=== PATIENT | female | born 1970 | race Caucasian/White ===

== ENCOUNTER 2017-10-30 11:55 | Observation (INO) | payer OTHER ==
[2017-10-30 12:50] VITALS: BMI 30.4
[2017-10-30 13:13] LABS: Absolute Lymphocytes (CBC) 1.3 K/uL (0.7-4.9); Absolute Monocytes 0.6 K/uL (0.1-1.3); Absolute Neutrophil 7.4 K/uL (1.8-8.0); Basophils % 0.7 % (0-1.3); Eosinophils % 0.3 % (0-4.4); Hematocrit 40.6 % (36.0-45.0); Lymphocytes % 13.7 % (15.3-44.8); MCH 28.7 pg (27.0-35.0); MCV 88.5 fL (80-100); Monocytes % 6.1 % (3.3-12.3); RBC Red Blood Cell Count 4.59 M/uL (3.86-4.86)
[2017-10-30 13:29] LABS: Potassium 4.4 mEq/L (3.6-5.0); Protime INR 1.06
[2017-10-30] MEDS: Ringers Lactate 1,000 ML IV SCH ×2 (13:36→22:54)
[2017-10-30] MEDS: Morphine 2 MG/2 ML SYR IV PRN ×2 (13:44→20:40)
[2017-10-30] MEDS ORDERED: ONDANSETRON 4 MG/2 ML VIAL IV ONE (13:49)
[2017-10-30 18:40] LABS: Hematocrit 37.9 % (36.0-45.0)
[2017-10-30] MEDS: ACETAMINOPHEN 500 MG TAB PO PRN (20:40)
[2017-10-30] MEDS: ONDANSETRON 4 MG/2 ML VIAL IV PRN (20:40)
--- NOTE | 2017-10-31 02:47 | HP ---
Date of Admission: 10/30/2017 Chief Complaint: Nose bleed. History Of Present Illness: Ms. Padmini Rockwell presented to the emergency room at [facility] this morning w ith severe nosebleed. She reports that she began bleeding profusely from the right side of the nose at approximately 7 a.m. and around 7:45 when the bleeding had not stopped, she was brought by her son to the [facility]. She underwent placement of a right rhino rocket and was referred to my clinic for further evaluation. The patient was evaluated in the clinic at approximately 10:30 in morning. She reports that she has a history of nosebleeds during childhood and underwent previous cauterization but had not had any significant nosebleeds for a significant period of time. She does have a history of high blood pressure and is on lisinopril 20 mg. Her primary care doctor, Dr. Denise sharpe, has been managing her blood pressure, but the patient feels that her blood pressure fluctuate s significantly and that it overall is not well controlled. She does have a history of ovarian cance r and was previously on chemotherapy but is not recently receiving any therapy. She denies any known history of bleeding disorder. There is no family history of HHT. She is not currently on any blood thinners or aspirin. She denies any facial trauma or other inciting event that she can recall with regard to the onset of the bleeding. Past Medical History: Ovarian cancer, nosebleeds in childhood. Previous Surgical History: Hysterectomy and lymphadenectomy. Current Medications: Lisinopril and medication for depression which she cannot recall. Allergies: SULFA. Social History: The patient lives with her and adolescent son. She denies any tobacco use o r alcohol use. Family Medical History: Hypertension in her father, kidney problems in her father, cancer in both pa rents. Review of Systems: Positive for dry eyes, ringing in the ears, snoring, diarrhea, constipation, possible swollen lymph n odes, history of cancer treatments and depression. All other review of systems is negative. Physical Examination: The patient appears acutely ill. She is very pale. She appears in distress and complains of severe pain in the right face and nose. She has a right-sided rhino rocket in place with no active bleeding anteriorly. The left nostril is clear. There is a prominent superficial blood vessel on the left n benja septum, but there is no sign of blood, bloody secretions, or crusting in this area. The orophar ynx is clear. The lips, teeth, gingiva, tongue, palate are all normal. The tonsils are not enlarged . The posterior pharyngeal wall is free from blood and clot. The external ears are unremarkable. T he ear canals and tympanic membranes are not examined. After discussing the options and preparing ap propriate equipment, the rhino rocket was carefully deflated. After a few moments, there is no signi ficant bleeding noted from the nose and the rhino rocket is gently removed from the nose. On examina tion of the right nasal cavity after a rhino rocket removal, the anterior septum appears smooth with no evidence of excoriations, crusting, or bleeding. There is clot within the middle meatus and on an terior rhinoscopy. I suspect a right-sided posterior epistaxis from the sphenopalatine region or pos sible anterior ethmoid. The patient after removal of the pack, feels some relief from pain, but also notes a sensation of bleeding or drainage in the back of the nose due to concern for recurrence of b leeding. A 4 cm Merocel tampon type pack is placed within the middle meatus. The pack is soaked wit h Afrin lidocaine solution. During placement of the pack, the patient reports feeling faint and redd me somewhat diaphoretic. She is reclined into a semisupine position and allowed to rest for several minutes. There was no apparent bleeding anteriorly or posteriorly from the nose after placement of t he Merocel pack. The patient is observed in the clinic for packs approximately 30 minutes and no add itional bleeding is noted. The patient remains quite pale and mildly tachycardic. Assessment: Right posterior epistaxis, tachycardia, concern for anemia of acute blood loss. Plan: After discussing options with the patient and her spouse, I feel the best plan of action is to place her under observation at [facility]. We will plan to keep the patient n.p.o. for the aftern oon in case additional bleeding results and need for operative intervention. We will start periphera l IV, IV fluids. We will plan for stat CBC, chemistry, and coag studies with hemoglobin and hematocr it measurements every 6 hours. I would expect some drop in her hemoglobin with hydration given recen t blood loss over the last few hours, but if her hemoglobin and hematocrit stabilize over night and t here is no active bleeding, we will assess for discharge to home. I reassessed the patient on the hospital floor at approximately 5:30 p.m. At that time, there was no active bleeding from the nose and her oropharynx was clear. She complained of pressure in the right cheek and in the right ear with some muffled hearing and I suspect she likely has a hemotympanum in conjunction with the nosebleed. We will assess further physical findings in the morning. I discusse d with the patient my impending departure from [facility] and the desire typically to leave pack in place f or 48 hours prior to removal. In the morning, we will discuss the option including removal on or removal with Dr. Rincon on Saturday. I advised the patient that due to my departure for out of town conference that if she had recurrence of bleeding over the weekend, she would require transfer to [place] or [place] since there will not be any ENT on-call who has operative privileges in this area. She and her expressed understanding. In addition, the patient expresses desire to [facility] primary care physician to Dr. Ashley. I do not see any acute need for inpatient evaluation with h im at the time, but would be happy to provide referral information and records as needed following he r discharge. RIGO Voice ID: [id number]
[2017-10-31] MEDS: ACETAMINOPHEN 500 MG TAB PO PRN (04:18)
[2017-10-31] MEDS: ONDANSETRON 4 MG/2 ML VIAL IV PRN (04:19)
[2017-10-31] MEDS: Morphine 2 MG/2 ML SYR IV PRN (04:20)
[2017-10-31 06:57] LABS: Hematocrit 36.2 % (36.0-45.0)
[2017-10-31 08:13] VITALS: BP 144/86
[2017-10-31] MEDS: Ringers Lactate 1,000 ML IV SCH (08:13)
[2017-10-31 08:17] VITALS: TEMP 97.6
[2017-10-31] MEDS ORDERED: LISINOPRIL 20 MG TAB PO SCH (09:00)
[2017-10-31 09:32] VITALS: O2SAT 96
== END 2017-10-31 09:00 | disposition home or self-care (01) ==
LOC: 4TH 12:12
PROVIDERS: ADMIT Otolaryngology; ATTEND Otolaryngology
DX: R04.0 Epistaxis (principal); R00.0 Tachycardia, unspecified; Z88.2 Allergy status to sulfonamides
CPT/HCPCS: 36415; 80048; 85014; 85018; 85025; 85610; 85730; G0378; J2270; J2405

== ENCOUNTER 2018-11-13 16:06 | Observation (INO) | payer OTHER ==
[2018-11-13 17:07] VITALS: BMI 30.7
[2018-11-13 18:23] LABS: Absolute Lymphocytes (CBC) 2.7 K/uL (0.7-4.9); Absolute Monocytes 0.6 K/uL (0.1-1.3); Absolute Neutrophil 2.6 K/uL (1.8-8.0); Basophils % 0.7 % (0-1.3); Eosinophils % 2.1 % (0-4.4); Hematocrit 39.3 % (36.0-45.0); MPV 9.3 fL (7.6-11.3); Monocytes % 9.4 % (3.3-12.3); RBC Red Blood Cell Count 4.47 M/uL (3.86-4.86)
[2018-11-13 18:29] LABS: Protime INR 0.97
[2018-11-13 18:57] LABS: Urine Appearance CLEAR; Urine Bilirubin NEGATIVE (NEG); Urine Blood NEGATIVE (NEG); Urine Color YELLOW; Urine Glucose NEGATIVE (NEG); Urine Microscopic Reflex NO UMIC; Urine Protein NEGATIVE (NEG); Urine Urobilinogen 0.2 mg/dL (0.2-1.0)
[2018-11-13 19:03] LABS: ALT/SGPT 45 U/L (12-78); AST/SGOT 30 U/L (15-37); Albumin 4.1 g/dL (3.4-5.0); Alkaline Phosphatase 90 U/L (45-117); BUN Blood Urea Nitrogen 15 mg/dL (7-18); Bicarbonate 29 mmol/L (21-32); Bilirubin Direct < 0.1 mg/dL (0-0.2); Bilirubin Total 0.3 mg/dL (0.2-1.0); Glucose Level 96 mg/dL (74-106); Magnesium 2.5 mg/dL (1.8-2.4); Phosphorus 4.6 mg/dL (2.5-4.9); Potassium 3.5 mmol/L (3.5-5.1); Protein, Total 7.8 g/dL (6.4-8.2); Sodium Level 142 mmol/L (136-145)
--- NOTE | 2018-11-13 19:43 | RAD REPORT ---
EXAM DESCRIPTION: RAD - Chest Pa And Lat (2 Views) - 11/13/2018 7:31 pm CLINICAL HISTORY: diffuse pain in abdomen and back Chest pain. COMPARISON: No comparisons FINDINGS: The lungs are clear. The heart is mildly prominent size. No displaced fractures. IMPRESSION: Mild cardiomegaly.
--- NOTE | 2018-11-13 19:49 | RAD REPORT ---
EXAM DESCRIPTION: MRI - Lumbar Spine Wo Con- 11/13/2018 7:20 pm CLINICAL HISTORY: pain Back pain, radiculopathy. COMPARISON: <Comparisons> FINDINGS: Vertebral body heights are within normal limits. No aggressive marrow pattern is observed. No fracture is suspected. The conus medullaris terminates at a normal level. No thickening of the cauda equina or clumping of n erve roots seen. L1-2 level: No significant findings. L2-3 level: Minimal posterior disc bulge and facet hypertrophy. L3-4 level: Mild posterior disc bulge and moderate facet and ligamentum flavum hypertrophy. L4-5 level: 5 mm central disc protrusion with moderate facet and ligamentum flavum hypertrophy. No si gnificant canal or foraminal stenosis. L5-S1 level: 4 mm central disc protrusion is present with [id number] facet and ligamentum flavu m hypertrophy. No significant central canal or foraminal stenosis. IMPRESSION: Mild lower lumbar spondylosis is seen. No high-grade canal stenosis or foraminal stenosi s is identified at any level.
--- NOTE | 2018-11-13 20:10 | RAD REPORT ---
EXAM DESCRIPTION: CT - Abdomen Pelvis W/Wo Contrast - 11/13/2018 7:50 pm CLINICAL HISTORY: pain Abdominal pain. COMPARISON: Abdomen Pelvis W Contrast dated 06/17/2017 TECHNIQUE: Axial non-contrast CT imaging was performed. Following this, biphasic contrast enhanced i maging through the abdomen and pelvis was performed with coronal and sagittal reformatted images. All CT scans are performed using dose optimization technique as appropriate and may include automated exposure control or mA/KV adjustment according to patient size. FINDINGS: The lower lung gleason are clear. The liver, spleen, pancreas and adrenal glands are normal. The non-contrast portion of the study does not demonstrate any urinary tract stones. No hydronephrosi s is seen in either kidney. The post-contrast portion of the examination fails to show a concerning renal mass or perinephric abn ormality. Postsurgical changes of lymph node dissection noted along the iliac vessels. No bowel obstruction, free fluid or abscess. Postsurgical findings are present in the sigmoid colon. The appendix is not identified as a discrete structure, however, no secondary findings of appendiciti s are identified. No fracture or aggressive marrow process is seen. IMPRESSION: No acute or pathologic finding demonstrated.
[2018-11-13] MEDS ORDERED: POLYETHYL GLY 3350 17 GM/DOSE PO PRN (20:44)
[2018-11-13] MEDS: CEFOXITIN SODIUM 1 GM/VIAL IVPB SCH (21:00)
[2018-11-13] MEDS ORDERED: NACHLORIDE 0.45% 1,000 ML IV SCH (21:00)
[2018-11-13] MEDS: HYDROMORPHONE HCL 2 MG/ML inj IV PRN (21:51)
[2018-11-13] MEDS: ONDANSETRON 4 MG/2 ML VIAL IV PRN (21:51)
[2018-11-13] MEDS ORDERED: CEFOXITIN SODIUM 1 GM/VIAL ONE (23:33)
[2018-11-13] MEDS: DIPHENHYDRAMINE 25 MG TAB/CAP PO PRN (23:42)
[2018-11-14] MEDS ORDERED: LOPERAMIDE HCL 2 MG CAPSULE PO PRN (00:01)
[2018-11-14] MEDS: CEFOXITIN SODIUM 1 GM/VIAL IVPB SCH (05:21)
[2018-11-14 06:21] LABS: Absolute Lymphocytes (CBC) 1.5 K/uL (0.7-4.9); Absolute Monocytes 0.4 K/uL (0.1-1.3); Absolute Neutrophil 5.9 K/uL (1.8-8.0); Basophils % 0.4 % (0-1.3); Eosinophils % 0.5 % (0-4.4); Hematocrit 38.7 % (36.0-45.0); Lymphocytes % 19.4 % (15.3-44.8); MPV 9.1 fL (7.6-11.3); Monocytes % 4.8 % (3.3-12.3); RBC Red Blood Cell Count 4.39 M/uL (3.86-4.86)
[2018-11-14 06:25] LABS: Magnesium 2.5 mg/dL (1.8-2.4)
[2018-11-14] MEDS: ACETAMINOPHEN 325 MG TABLET PO PRN ×2 (06:47→10:59)
[2018-11-14] MEDS ORDERED: ONDANSETRON 4 MG (ODT) TAB PO PRN (08:00)
--- NOTE | 2018-11-14 08:40 | EKG ---
Test Date: 2018-11-13 Test Time: 17:43:30 Cell Tender Helper: CARL MEASUREMENT RESULTS: Intervals: Rate: 51 LA: 176 QRSD: 98 QT: 464 QTc: 427 [place]: P: 53 LA: 176 QRS: 13 T: -9 INTERPRETIVE STATEMENTS: Sinus bradycardia Low voltage QRS Cannot rule out Anterior infarct, age undetermined T wave abnormality, consider lateral ischemia Abnormal ECG No previous ECG available for comparison Electronically Signed On 11-14-18 08:39:42 CDT by Daniel Macdonald
[2018-11-14] MEDS ORDERED: CANDESARTAN PO SCH (09:00)
[2018-11-14] MEDS: NACHLORIDE 0.45% 1,000 ML IV SCH ×3 (09:00→19:50)
[2018-11-14] MEDS: ENOXAPARIN 40 MG/0.4 ML SQ SCH ×2 (09:00→09:40)
[2018-11-14] MEDS ORDERED: HYDROCHLOROTHIAZIDE PO SCH (09:00)
[2018-11-14] MEDS ORDERED: [UNRECOGNIZED DRUG - OTHER] PO SCH (09:00)
[2018-11-14] MEDS ORDERED: CEFOXITIN/SWI 1gm 1 GM/10 ML SYR IV SCH (09:00)
[2018-11-14] MEDS: SERTRALINE HCL 50 MG TAB PO SCH (09:40)
[2018-11-14] MEDS: CARVEDILOL 12.5 MG TAB PO SCH (09:41)
[2018-11-14] MEDS ORDERED: VALSARTAN 80 MG TAB PO SCH (10:30)
[2018-11-14] MEDS ORDERED: hydroCHLOROthiazide 12.5 MG CAP PO SCH (10:30)
--- NOTE | 2018-11-14 15:47 | P.CNS ---
Date of Consult: 11/14/18 Reason for Consult: ROBIN Chief Complaint: back pain History of Present Illness: A 47 Y/o woman with PMhx of HTN on HCTZ and valsartan, Hx of ovarian cancer in 2005 S/P oopherectomy and hysterectomy and chemotherapy and Hx of recurrent UTI pt had urinary urgency and frequency last week , took OTC AZO Saturday pt was complaining of flank and back pain aggrivated by sitting in ER Cr 0.7 , recived IV ontrast , no NSAID Cr up to 1.3 today no chest pain fever or chills Allergies Sulfa (Sulfonamide Antibiotics) Allergy (Intermediate, Verified 11/13/18 18:08) Unknown codeine Adverse Reaction (Mild, Verified 11/13/18 18:08) Unknown Home Medications: Candesartan/Hydrochlorothiazid [Candesartan-Hctz 32-12.5 mg Tb] 32 mg PO DAILY 11/13/18 Carvedilol [Coreg*] 12.5 mg PO DAILY 11/13/18 Sertraline [Zoloft*] 25 mg PO DAILY 11/13/18 - Past Medical/Surgical History Diabetic: No -: HTN -: hypothyroid -: depression -: ovarian cancer -: 2005 hysterectomy -: lymphectomy -: colon resection, tumor removal -: appendectomy - Family History Mother Medical History: Cancer Father Medical History: Hypertension, Cancer - Social History Alcohol use: No CD- Drugs: No Caffeine use: Yes Place of Residence: Home Physical Examination Temp Pulse Resp BP Pulse Ox 97.2 F 53 18 123/72 94 11/14/18 12:00 11/14/18 12:00 11/14/18 12:00 11/14/18 12:00 11/14/18 12:00 General: In no apparent distress, Oriented x3 HEENT: Atraumatic Neck: Supple, Without JVD or thyroid abnormality Respiratory: Clear to auscultation bilaterally Cardiovascular: No edema, Regular rate/rhythm, Normal S1 S2, No gallops, No rubs , No murmurs Gastrointestinal: Normal bowel sounds, Soft and benign Laboratory Data (last 24 hrs) 11/14/18 05:30: Sodium 143, Potassium 4.0, BUN 15, Creatinine 1.38 H, Glucose 110 H, Magnesium 2.5 H 11/14/18 05:30: WBC 7.8 D, Hgb 13.0, Hct 38.7, Plt Count 262 11/13/18 17:45: Sodium 142, Potassium 3.5, BUN 15, Creatinine 0.72, Glucose 96, Phosphorus 4.6, Magnesium 2.5 H, Total Bilirubin 0.3, AST 30, ALT 45, Alkaline Phosphatase 90 11/13/18 17:45: PT 11.5, INR 0.97, APTT 30.1 11/13/18 17:45: WBC 6.0, Hgb 13.2, Hct 39.3, Plt Count 286 - Problems (1) ROBIN (acute kidney injury) Current Visit: Yes Status: Acute Conclusions/Impression: ROBIN reason is unclear , pt with contrast exposure but she is at a low risk for contrast induced nephropathy Abd Ct; no hydro, renal mass? Agree with IVF urine no active sidemnt will dc HCTZ and valsartan HTN controlled will dc HCTZ and valsartan Abd and back pain Abd Ct and Spine MRI , with no significant finding avoid NSAID
--- NOTE | 2018-11-14 18:21 | RAD REPORT ---
EXAM DESCRIPTION: US - Renal Ultrasound-Complete - 11/14/2018 5:19 pm CLINICAL HISTORY: . Acute renal insufficiency COMPARISON: None. FINDINGS: The right kidney measures 10 cm with a normal echotexture. The left kidney measures 10 cm with a normal echotexture. Hydronephrosis is not seen. No gross abnormality of the bladder IMPRESSION: Unremarkable renal ultrasound.
[2018-11-14] MEDS: HYDROMORPHONE HCL 2 MG/ML inj IV PRN (19:50)
[2018-11-14] MEDS: ONDANSETRON 4 MG/2 ML VIAL IV PRN (19:51)
[2018-11-14] MEDS: DIPHENHYDRAMINE 25 MG TAB/CAP PO PRN (20:05)
[2018-11-14 23:28] VITALS: O2SAT 94
--- NOTE | 2018-11-14 23:39 | CON ---
Date of Consultation: 11/14/2018 History Of Present Illness: Ms. Rockwell is a 47-year-old patient, comes to the hospital with back jovi n. She stated the pain also goes in the left lower quadrant. She has history of recurrent UTIs, but she does not remember at this moment any dysuria or hematuria. She has history of an oophorectomy a nd hysterectomy for ovarian cancer with also a history of chemotherapy. She states she is even havin g problem with bowel issues and in this case, she mentioned about a torsion that required laparotomy and bowel resection. There is pain right now she states in the lower abdomen right in the area above the sacrum. She denies any trauma, any falls. She denies any melena. Allergies: INCLUDE SULFA AND CODEINE. Medications: Include Coreg, Zoloft, and hydrochlorothiazide. Medical Problems: Ovarian cancer, history of chemotherapy, depression, hypothyroidism, hypertension. Past Surgical History: Includes ovarian cancer surgery; hysterectomy; lymphadenectomy, she states tw ice; appendectomy; and she mentioned also some intestinal resection, but no details on the extent of that. Review of Systems: Ten points, otherwise unremarkable. Physical Examination: General: The patient is awake and alert. HEENT: Pupils are equal and reactive, anicteric. Neck: Supple. Chest: Clear. Abdomen: Soft and depressible. No guarding or rebound. She has some kind of left flank tenderness with tenderness over the area of the sacrum region. We did not see any infection or any abscess in t hat region. No step-off tenderness. No pinpoint tenderness. Rectal and Pelvic: Deferred. Extremities: Good capillary refill. Inguinal region with no major lymphadenopathy palpated. Laboratory Data: Blood work shows WBC count of 6.0, hemoglobin of 13.2, INR was 0.97, creatinine is 0.72. Total bilirubin of 0.3. UA: Nitrite negative, blood negative. CAT scan of abdomen and pelvi s interpreted by Dr. Calabrese as liver, spleen, pancreas, and adrenal glands normal. No urinary tract stone seen, no hydronephrosis seen. No masses in the kidney seen. On iliac vessels, some changes to lymph node from previous dissection. No bowel obstruction, free fluid, or abscess. Postsurgical ch anges in the sigmoid colon. Negative study. The patient also had a renal ultrasound showed unremark able ultrasound. Assessment: A 47-year-old patient with lower back pain, but etiology of that is unknown. With exten sive history of abdominal surgery, ovarian cancer with lymph node involvement, it is hard to pinpoint etiology of this pain. We did not see anything at this moment that is acute, although we really enc ouraged her to follow with her oncologist to continue the workup for ovarian cancer. We cannot rule out any metastasis at this moment. I do not see it at this moment right now. I do not see any surgi naveed intervention. Plan: Fluoroscopy in the next 24 hours, although once again we encouraged her to follow with her onc ologist for proper workup for any metastatic disease. We will follow up in your office when she gets discharged. LUCRECIA/LOC Voice ID: [id number] Report ID: [id number]
[2018-11-15] MEDS: ONDANSETRON 4 MG/2 ML VIAL IV PRN (01:43)
[2018-11-15] MEDS: HYDROMORPHONE HCL 2 MG/ML inj IV PRN (01:43)
[2018-11-15] MEDS: NACHLORIDE 0.45% 1,000 ML IV SCH (03:36)
[2018-11-15] MEDS: ACETAMINOPHEN 325 MG TABLET PO PRN (06:04)
[2018-11-15 06:23] LABS: Absolute Lymphocytes (CBC) 2.1 K/uL (0.7-4.9); Absolute Monocytes 0.5 K/uL (0.1-1.3); Absolute Neutrophil 4.2 K/uL (1.8-8.0); Basophils % 0.6 % (0-1.3); Eosinophils % 1.2 % (0-4.4); Hematocrit 36.6 % (36.0-45.0); Lymphocytes % 30.3 % (15.3-44.8); MPV 8.9 fL (7.6-11.3); Monocytes % 6.8 % (3.3-12.3); RBC Red Blood Cell Count 4.13 M/uL (3.86-4.86)
[2018-11-15 06:45] LABS: Magnesium 2.3 mg/dL (1.8-2.4); Potassium 3.7 mmol/L (3.5-5.1)
[2018-11-15 08:16] VITALS: BP 126/80; TEMP 96.6
[2018-11-15] MEDS ORDERED: POTASSIUM CL SA 10 MEQ TAB PO ONE (09:00)
[2018-11-15] MEDS: ENOXAPARIN 40 MG/0.4 ML SQ SCH (09:00)
[2018-11-15] MEDS: SERTRALINE HCL 50 MG TAB PO SCH (09:04)
[2018-11-15] MEDS: CARVEDILOL 12.5 MG TAB PO SCH (09:04)
--- NOTE | 2018-11-15 21:56 | P.DS ---
Admission Date: 11/13/18 Discharge Date: 11/15/18 Disposition: ROUTINE DISCHARGE Reason for Admission: back pain Hospital Course: ARTIE HAS PAIN THAT IS DIFFUSE AND ALSO IN THE BACK. SHE HAD CAT SCAN OF ABDOMEN, SONOGRAM OF ABDOMEN, MRI OF L SPINE WITHOUT ANY SIGNIFICANT FINDINGS. HER LAB WORK WAS NORMAL BUT AFTER A DOSE OF ABX THE CREATIINE RISED. I KEPT HER ONE MORE DAY, STOPPED ABX I DID NOT SEE REASON TO CONTINUE. WITH IV FLUIDS HER CREATININE NORMALIZED. SHE STILL HAS PAIN AND MAY HAVE FACTOR OF IBS OR ENDOMETRIOSIS. THIS IS AT THIS POINT OUTPATIENT ISSUE. I DISCHARGED HER IN STABLE CONDITION AND FOLLOW UP SOON. Vital Signs/Physical Exam: Temp Pulse Resp BP Pulse Ox 96.6 F L 61 18 126/80 97 11/15/18 08:00 11/15/18 09:04 11/15/18 08:00 11/15/18 09:04 11/15/18 08:00 Laboratory Data at Discharge: WBC 6.9 K/uL (4.3-10.9) 11/15/18 05:56 Hgb 12.3 g/dL (12.0-15.0) 11/15/18 05:56 Hct 36.6 % (36.0-45.0) 11/15/18 05:56 Plt Count 257 K/uL (152-406) 11/15/18 05:56 PT 11.5 SECONDS (9.5-12.5) 11/13/18 17:45 INR 0.97 11/13/18 17:45 APTT 30.1 SECONDS (24.3-36.9) 11/13/18 17:45 Sodium 140 mmol/L (136-145) 11/15/18 05:56 Potassium 3.7 mmol/L (3.5-5.1) 11/15/18 05:56 BUN 13 mg/dL (7-18) 11/15/18 05:56 Creatinine 0.73 mg/dL (0.55-1.3) 11/15/18 05:56 Glucose 110 mg/dL (74-106) H 11/15/18 05:56 Phosphorus 4.6 mg/dL (2.5-4.9) 11/13/18 17:45 Magnesium 2.3 mg/dL (1.8-2.4) 11/15/18 05:56 Total Bilirubin 0.3 mg/dL (0.2-1.0) 11/13/18 17:45 AST 30 U/L (15-37) 11/13/18 17:45 ALT 45 U/L (12-78) 11/13/18 17:45 Alkaline Phosphatase 90 U/L (45-117) 11/13/18 17:45 Amylase 37 U/L (25-115) 11/15/18 09:02 Lipase 111 U/L (73-393) 11/15/18 05:56 Home Medications: Candesartan/Hydrochlorothiazid [Candesartan-Hctz 32-12.5 mg Tb] 32 mg PO DAILY 11/13/18 Carvedilol [Coreg*] 12.5 mg PO DAILY 11/13/18 Sertraline [Zoloft*] 25 mg PO DAILY 11/13/18 Followup: Jt Ashley MD [Primary Care Provider] - (call to schedule appointment)
[2018-11-18 03:17] LABS: HBsAG Nonreactive (Nonreactive)
[2018-11-18 10:17] LABS: P-ANCA Anti-Myeloperoxidase Ab <1.0 AI (<1.0)
[2018-11-19 23:27] LABS: Alpha-1-Globulins 0.3 g/dL (0.2-0.3); Alpha-2-Globulins 0.6 g/dL (0.5-0.9); Gamma Globulins 0.9 g/dL (0.8-1.7); INTERPRETATION REPORT
== END 2018-11-15 11:04 | disposition home or self-care (01) ==
LOC: 4TH 16:50
PROVIDERS: ADMIT Internal Medicine; ATTEND Internal Medicine
DX: M54.5 Low back pain (principal); N17.9 Acute kidney failure, unspecified; R10.31 Right lower quadrant pain; R10.10 Upper abdominal pain, unspecified; I10 Essential (primary) hypertension; E03.9 Hypothyroidism, unspecified; Z85.43 Personal history of malignant neoplasm of ovary; Z87.440 Personal history of urinary (tract) infections; Z88.2 Allergy status to sulfonamides
CPT/HCPCS: 36415; 71046; 72148; 74178; 76770; 80048; 80076; 81003; 82150; 82306; 82607; 83520; 83690; 83735; 83970; 84100; 84165; 84439; 84443; 85025; 85379; 85610; 85652; 85730; 86021; 86038; 86160; 86317; 86334; 86705; 86706; 86803; 87086; 87088; 87340; 93005; G0378; J0694; J1170; J1650; J2405; Q9967